=== PATIENT | female | born 1935 | race Caucasian/White ===

== ENCOUNTER 2021-03-04 10:47 | Outpatient (CLI) | payer MEDICARE, SELFPAY | END 2021-03-04 10:48 | disposition home or self-care (01) | LOC: CHSLAB 10:55 | PROVIDERS: PCP Family Medicine; Visit Provider Specialist | DX: C44.319 Basal cell carcinoma of skin of other parts of face (principal) | CPT/HCPCS: 88305 ==

== ENCOUNTER 2024-02-22 10:27 | Outpatient (CLI) | payer MEDICARE, SELFPAY | END 2024-02-22 10:28 | disposition home or self-care (01) | LOC: CHSLAB 10:29 | PROVIDERS: PCP Family Medicine; Visit Provider Specialist | DX: C44.311 Basal cell carcinoma of skin of nose (principal); C44.319 Basal cell carcinoma of skin of other parts of face | CPT/HCPCS: 88305 ==